=== PATIENT | female | born 1955 | race Caucasian/White ===

== ENCOUNTER 2023-04-28 21:23 | Inpatient (IN) | payer MEDICARE ==
[~2023-04-28] VITALS: Ht 154.9 cm; Wt 55.2 kg
[2023-04-28 21:49] LABS: BASOPHILS ABSOLUTE AUTO 0.07 K/mm3 (0.00-0.23); BASOPHILS PERCENT AUTO 1 % (0-2); EOSINOPHILS ABSOLUTE AUTO 0.09 K/mm3 (0.00-0.68); EOSINOPHILS PERCENT AUTO 1 % (0-6); Hematocrit 37.5 % (33.0-51.0); Hemoglobin 12.2 g/dL (11.5-16.0); IMMATURE GRAN ABSOLUTE AUTO 0.05 K/mm3 (0.00-0.10); IMMATURE GRAN PERCENT AUTO 0 % (0-1); LYMPHOCYTES ABSOLUTE AUTO 1.94 K/mm3 (0.84-5.20); LYMPHOCYTES PERCENT AUTO 16 % (21-46); MONOCYTES ABSOLUTE AUTO 0.99 K/mm3 (0.16-1.47); MONOCYTES PERCENT AUTO 8 % (4-13); Mean Corpuscular HGB 29.2 pg (26.0-34.0); Mean Corpuscular HGB Conc 32.5 g/dL (31.5-36.5); Mean Corpuscular Volume 90 fL (80-100); Mean Platelet Volume 10.5 fL (9.1-12.4); NEUTROPHILS ABSOLUTE AUTO 9.11 K/mm3 (1.96-9.15); NEUTROPHILS PERCENT AUTO 74 % (41-73); Platelet Count 281 K/mm3 (150-400); RDW Coefficient Variation 13.4 % (11.7-14.2); RDW Standard Deviation 44.2 fL (35.1-46.3); Red Blood Cell Count 4.18 M/mm3 (3.80-5.20); White Blood Cell Count 12.25 K/mm3 (4.00-11.30)
[2023-04-28 22:05] LABS: Calcium, Ionized (POC) 1.01 mmol/L (1.10-1.46); Chloride (POC) 105 mmol/L (98-108); Creatinine (POC) 0.6 mg/dL (0.6-1.0); Glucose (ISTAT POC) 155 mg/dL (70-99); Hemoglobin (POC) 12.9 g/dL (12.0-16.0); Potassium (POC) 3.6 mmol/L (3.5-5.5); Sodium (POC) 140 mmol/L (135-148); Total CO2 (POC) 24 mmol/L (21-32)
[2023-04-28 22:27] LABS: Alanine Aminotransfer (ALT/SGP 25 U/L (12-78); Albumin, Blood 3.4 g/dL (3.4-5.0); Alk Phos 87 U/L (50-136); Anion Gap 6 mmol/L (6-16); Aspartate Aminotrans (AST/SGOT 21 U/L (12-37); Bilirubin, Total 0.2 mg/dL (0.1-1.0); Blood Urea Nitrogen 14 mg/dL (8-24); Bun/Creatinine Ratio 20.1 (12.0-20.0); CHOL/HDL RATIO 3.1; CO2, Blood 27 mmol/L (21-32); Calcium, Blood 8.4 mg/dL (8.5-10.1); Chloride, Blood 109 mmol/L (98-108); Cholesterol 165 mg/dL (50-200); Globulin, Blood 3.3 g/dL (2.2-4.0); Glomerular Filtration Rate 94 (60-); Glucose, Blood 162 mg/dL (70-99); HDL Cholesterol 53 mg/dL (>39); LDL/HDL RATIO 1.6; Low Density Lipoprotein Chol 86 mg/dL (0-110); Magnesium, Blood 2.1 mg/dL (1.6-2.4); Potassium, Blood 3.5 mmol/L (3.5-5.5); Sodium, Blood 142 mmol/L (136-145); Total Protein, Blood 6.7 g/dL (6.4-8.2); Triglycerides 128 mg/dL (30-160); Very Low Density Lipoprot Chol 25 mg/dL (6-32)
[2023-04-28 23:00] VITALS: BP 75/49
[2023-04-28 23:15] VITALS: BP 80/58
[2023-04-28 23:30] VITALS: BP 63/46
[2023-04-28 23:44] LABS: International Normalized Ratio 1.01; Prothrombin Time Results 10.6 Sec (9.7-11.5)
[2023-04-28 23:45] VITALS: BP 85/52
[2023-04-29] VITALS (37 sets, daily range): BP systolic 70–106; BP diastolic 46–81
--- NOTE | 2023-04-29 00:56 | NUR ---
ADMIT TO ICU 12: PT ARRIVED TO THE UNIT FROM FILM TESTS CHECKER AT 2255; PT ADMITED DUE TO STEMI, STATUS POST STENT PLACEMENT. PT HAD ONE STENT PLACED TO RCA WITH A RIGHT RADIAL ACCESS POINT AND A TR-BAND ON PLACE. ACCESS SITE IS WITHOUT HEMATOMA OR SIGNS OF BLEEDING, CIRCULATION AND SENSATION INTACT IN EXTREMITIY. PT IS PLEASANT, A&O X 4 AND COOPERATIVE WITH CARE. PT SR ON MONITOR WITH HR 80'S AND SBP 90'S; PT DENIES CHEST PAIN AT THIS TIME. PT ON NC @ 2LPM WITH SPO2 96<; PT HAS CLEAR LUNG SOUNDS WITH EXPIRATORY WHEEZE NOTED, DIM MID-LOWER BASES AND A HX OF COPD WHERE SHE STATES THAT SHE IS SOB ALL THE TIME AT BASELINE. 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 PT EDUCATED REGARDINH IGNITION SOURCES AND FIRE RISK WHILE OXYGEN IS IN USE. PT VERBALIZES UNDERSTANDING AND ALL PERSONAL BELONGINGS LOCKED AWAY IN ROOM. PT HAS HYPOACTIVE BS IN ALL QUADRANTS; ABD SOFT AND NON-TENDER. PT STATES INCONTINENCE AT BASELINE; DEPENDS AND PUREWICK PLACED. PT SKIN INTACT, PPP X 4 AND COOL HANDS/FINGERS. PT HAS NO PAIN COMPLAINTS AT THIS TIME. NS INFUSING @ 75 MLS/HR. BED LOWERED, CALL LIGHT IN REACH, WILL CONTINUE TO MONITOR.
[2023-04-29 02:46] LABS: BASOPHILS ABSOLUTE AUTO 0.03 K/mm3 (0.00-0.23); BASOPHILS PERCENT AUTO 0 % (0-2); EOSINOPHILS ABSOLUTE AUTO 0.01 K/mm3 (0.00-0.68); EOSINOPHILS PERCENT AUTO 0 % (0-6); Hematocrit 34.5 % (33.0-51.0); Hemoglobin 11.3 g/dL (11.5-16.0); IMMATURE GRAN ABSOLUTE AUTO 0.04 K/mm3 (0.00-0.10); IMMATURE GRAN PERCENT AUTO 0 % (0-1); LYMPHOCYTES ABSOLUTE AUTO 1.13 K/mm3 (0.84-5.20); LYMPHOCYTES PERCENT AUTO 9 % (21-46); MONOCYTES ABSOLUTE AUTO 0.68 K/mm3 (0.16-1.47); MONOCYTES PERCENT AUTO 5 % (4-13); Mean Corpuscular HGB 28.8 pg (26.0-34.0); Mean Corpuscular HGB Conc 32.8 g/dL (31.5-36.5); Mean Corpuscular Volume 88 fL (80-100); Mean Platelet Volume 10.7 fL (9.1-12.4); NEUTROPHILS ABSOLUTE AUTO 10.62 K/mm3 (1.96-9.15); NEUTROPHILS PERCENT AUTO 85 % (41-73); Platelet Count 292 K/mm3 (150-400); RDW Coefficient Variation 13.4 % (11.7-14.2); RDW Standard Deviation 42.8 fL (35.1-46.3); Red Blood Cell Count 3.92 M/mm3 (3.80-5.20); White Blood Cell Count 12.51 K/mm3 (4.00-11.30)
[2023-04-29 03:00] LABS: Bilirubin, Total 0.2 mg/dL (0.1-1.0); Bun/Creatinine Ratio 22.9 (12.0-20.0); Calcium, Blood 7.8 mg/dL (8.5-10.1); Creatinine, Blood 0.52 mg/dL (0.40-1.00); Potassium, Blood 3.6 mmol/L (3.5-5.5)
--- NOTE | 2023-04-29 06:21 | NUR ---
SHIFT SUMMARY: PT ABLE TO GET SOME SLEEP TONIGHT AFTER ADMISSION. PT HAS BEEN IN SR FOR MAJORITY OF THE NIGHT WITH SOME PVC'S AND SMALL RUNS OF V-TACH; THIS MORNING AROUND 0600 PT HAD 38 BEAT RUN OF V-TACH WITH SOME REPORTED CHEST PRESSURE AND A HEADACHE. DR CALI CALLED AND NOTIFED, NO NEW ORDER RECIEVED. PT HAS BEEN TOLERATING PO FLUID INTAKE THIS MORNING BUT DOES NOT HAVE AN APPETITE. PUREWICK/DEPENDS IN PLACE. BED LOWERED, CALL LIGHT IN REACH, WILL CONTINUE TO MONITOR UNTIL ONCOMING RN ARRIVES.
[2023-04-29 08:41] LABS: Anion Gap 5 mmol/L (6-16); Blood Urea Nitrogen 12 mg/dL (8-24); Bun/Creatinine Ratio 22.6 (12.0-20.0); CO2, Blood 26 mmol/L (21-32); Calcium, Blood 7.7 mg/dL (8.5-10.1); Chloride, Blood 113 mmol/L (98-108); Cholesterol 139 mg/dL (50-200); Creatinine, Blood 0.53 mg/dL (0.40-1.00); Glomerular Filtration Rate 100 (60-); Glucose, Blood 111 mg/dL (70-99); Sodium, Blood 144 mmol/L (136-145)
[2023-04-29 08:55] LABS: BASOPHILS ABSOLUTE AUTO 0.04 K/mm3 (0.00-0.23); BASOPHILS PERCENT AUTO 0 % (0-2); EOSINOPHILS ABSOLUTE AUTO 0.03 K/mm3 (0.00-0.68); EOSINOPHILS PERCENT AUTO 0 % (0-6); Hematocrit 35.9 % (33.0-51.0); Hemoglobin 11.4 g/dL (11.5-16.0); IMMATURE GRAN ABSOLUTE AUTO 0.03 K/mm3 (0.00-0.10); IMMATURE GRAN PERCENT AUTO 0 % (0-1); LYMPHOCYTES PERCENT AUTO 12 % (21-46); MONOCYTES ABSOLUTE AUTO 0.87 K/mm3 (0.16-1.47); MONOCYTES PERCENT AUTO 8 % (4-13); Mean Corpuscular HGB 29.4 pg (26.0-34.0); Mean Corpuscular HGB Conc 31.8 g/dL (31.5-36.5); Mean Platelet Volume 10.7 fL (9.1-12.4); NEUTROPHILS ABSOLUTE AUTO 8.64 K/mm3 (1.96-9.15); NEUTROPHILS PERCENT AUTO 79 % (41-73); Platelet Count 251 K/mm3 (150-400); RDW Coefficient Variation 13.8 % (11.7-14.2); Red Blood Cell Count 3.88 M/mm3 (3.80-5.20); White Blood Cell Count 10.91 K/mm3 (4.00-11.30)
[2023-04-29 08:56] LABS: Mean Corpuscular Volume 93 fL (80-100)
--- NOTE | 2023-04-29 12:39 | NUR ---
PT HAD A 30 BEAT RUN OF VTACH. PT STATES SHE DOES NOT FEEL WELL. DIAPHORETIC, HOT FLASH, AND JUST GENERALLY DOESN'T FEEL WELL. SPOKE WITH DR. CALI ABOUT VTACH AND SYMPTOMS. NEW ORDERS FOR METOPROLOL.
--- NOTE | 2023-04-29 17:35 | NUR ---
SUMMARY PT A/O X4. DENIES CP OR PRESSURE THIS EVENING. HAS FELT BETTER AFTER GETTING METOPROLOL THIS AFTERNOON AND HAS ONLY HAD A COUPLE 4-5 BEAT RUNS OF VTACH THAT SHE WAS ASYMPTOMATIC WITH. DR. CALI IN THIS EVENING AND UPDATED. PT GOT UP WITH PHYSICAL THERAPY WITHOUT ISSUE. R RADIAL ACCESS SITE STABLE AND PT COMPLIANT WITH CARE. SITTING AT EDGE OF BED FOR DINNER AND NO SIGN OF DISTRESS.
--- NOTE | 2023-04-29 17:40 | NUR ---
PT'S BELONGINGS WITH CIGARETTES AND MIXING MACHINE TENDER CORK GASKET ARE LOCKED IN LOCKING CABINET. HOURLY ROUNDING T/O THE DAY ASSESSING IGNITION RISK. PT HAS NICOTINE PATCH ON. EDUCATED ABOUT SMOKING CESSATION. EDUCATED ABOUT NO SMOKING, VAPING OR OPEN FLAME IN HOSPITAL. PT VERBALIZES UNDERSTANDING.
--- NOTE | 2023-04-29 18:12 | NUR ---
REPORT RECIEVED FROM MANAGER STRATEGIC SOURCING AT 0532.
--- NOTE | 2023-04-29 18:18 | NUR ---
PT TRANSFERED TO [facility] 4 VIA W/C. REPORT GIVEN TO PRISCILLA SANTILLAN.
--- NOTE | 2023-04-29 18:36 | NUR ---
TRANSFER UPDATE/ IGNITION RISK ASSESSMENT PT ARRIVED TO PCU AT 1825 VIA WHEELCHAIR. PT BELONGINGS TRANSFERED WITH PT. PT ON 1L NC AT TIME OF ARRIVAL. NO REPORT OF CHEST PAIN/PRESSURE AT TIME OF ARRIVAL. NO REPORT OF SOB AT TIME OF ARRIVAL. PT ABLE TO TRANSFER SLEF TO AND FROM WHEELCHAIR, TOLERATED WELL. PT HAD ARM BOARD ON RIGHT ARM. TR BAND SITE C/D/I. PT ORIENTED TO PCU ROOM AND CALL LIGHT. PT ASSESSED FOR SMOKING AND IGNITION RISK. PT REPORTS THAT SHE HAS NOT BEEN SMOKING LATELY BUT REPORTED A METALLURGICAL TECHNICIAN IN HER PURSE. PT AGREED TO ALLOW STAFF TO REMOVE METALLURGICAL TECHNICIAN AND PUT IT IN THE LOCKED DRAWER OUTSIDE OF PT ROOM. PT REMINDED THAT [facility] IS A SMOKE FREE FACILITY AND THAT VISTORS NEED TO LEAVE IGNITION RISK DEVICES IN THEIR CAR. PT AGREED.
[2023-04-29] MEDS ORDERED: QUET25 PO (22:31)
[2023-04-30] VITALS: BP 105/72
[2023-04-30 02:00] VITALS: BP 95/72
[2023-04-30 03:43] VITALS: BP 101/70
[2023-04-30 03:59] LABS: BASOPHILS ABSOLUTE AUTO 0.04 K/mm3 (0.00-0.23); BASOPHILS PERCENT AUTO 0 % (0-2); EOSINOPHILS ABSOLUTE AUTO 0.04 K/mm3 (0.00-0.68); EOSINOPHILS PERCENT AUTO 0 % (0-6); Hemoglobin 10.9 g/dL (11.5-16.0); IMMATURE GRAN ABSOLUTE AUTO 0.03 K/mm3 (0.00-0.10); IMMATURE GRAN PERCENT AUTO 0 % (0-1); LYMPHOCYTES ABSOLUTE AUTO 1.71 K/mm3 (0.84-5.20); LYMPHOCYTES PERCENT AUTO 18 % (21-46); MONOCYTES PERCENT AUTO 9 % (4-13); Mean Corpuscular HGB 29.5 pg (26.0-34.0); Mean Corpuscular Volume 89 fL (80-100); Mean Platelet Volume 10.9 fL (9.1-12.4); NEUTROPHILS ABSOLUTE AUTO 6.75 K/mm3 (1.96-9.15); NEUTROPHILS PERCENT AUTO 72 % (41-73); Platelet Count 260 K/mm3 (150-400); RDW Coefficient Variation 13.7 % (11.7-14.2); RDW Standard Deviation 44.7 fL (35.1-46.3); Red Blood Cell Count 3.69 M/mm3 (3.80-5.20); White Blood Cell Count 9.37 K/mm3 (4.00-11.30)
[2023-04-30 04:16] LABS: Albumin, Blood 2.8 g/dL (3.4-5.0); Albumin/Globulin Ratio 0.9 (0.8-1.8); Bilirubin, Total 0.3 mg/dL (0.1-1.0); Calcium, Blood 8.1 mg/dL (8.5-10.1); Creatinine, Blood 0.53 mg/dL (0.40-1.00); Potassium, Blood 3.8 mmol/L (3.5-5.5); Total Protein, Blood 5.8 g/dL (6.4-8.2)
--- NOTE | 2023-04-30 04:33 | NUR ---
SHIFT SUMMARY THIS RN ASSUMED CARE OF PATIENT AT 1900. PATIENT ALERT AND ORIENTED FULLY. ABLE TO MAKE NEEDS KNOWN. SR ON MONITOR WITH HR 70'S, OCCASIONAL PVC'S. ON RA-2L VIA NC TO MAINTAIN SPO2 >92%. PT NOTED TO HAVE DYSPNEA WITH EXERTION. BP STABLE WITH SBP 100'S AT THIS TIME. AFEBRILE. PT DENIES CHEST PAIN/PRESSURE. PPP. RIGHT RADIAL SITE FULLY RECOVERED. DRESSING C/D/I. ARMBOARD IN PLACE. BED IN LOWEST POSITION AND CALL LIGHT WITHIN REACH. IGNITION RISK/SAFETY ASSESSMENT AND EDUCATION COMPLETE. PT VERBALIZED UNDERSTANDING; CONCESSIONIST LOCKED IN LOCKBOX. THIS RN WILL CONTINUE TO MONITOR UNTIL SHIFT CHANGE AT 0700.
[2023-04-30 07:50] VITALS: BP 97/74
--- NOTE | 2023-04-30 09:11 | NUR ---
UPDATE: ON AM ASSESSMENT PT NOTED TO HAVE INCREASE WORK OF BREATHING, RESP 22-24. PT STATES "SHE CAN NOT CATCH HER BREATH." MED LIST REVIEWED, PT NOTED TO HAVE BEEN STARTED ON MEDICATION [place] 04/29/23. CALL PLACED TO CARIDOLOGIST, SHAYAN D/C SWITCHED TO [place]. PLAN FOR PT TO STAY ONE MORE DAY, POSSIBLE D/C TOMORROW.
[2023-04-30 15:23] VITALS: BP 111/86
--- NOTE | 2023-04-30 16:46 | NUR ---
SHIFT SUMMARY: PT ALERT AND ORIENTED X4, ABLE TO FOLLOW COMMANDS AND MAKE NEEDS KNOWN. BP STABLE, HR SR-ST, AFEBRILE, SATS >98% ON ROOM AIR. PT WITH INCREASED WORK OF BREATHING THIS AM, SEE PREVIOUS NOTE. BREATHING IMPROVED, DENIES SOB. PT WITH ANXIETY THIS AFTERNOON, CALL PLACED TO MD, NEW ORDERS RECEIVED, SEE EMAR. ABLE TO AMBULATE TO AND FROM BATHROOM IND. NS GTT AT 50ML/HR. BED IN LOW, CALL LIGHT IN REACH, WILL REPORT TO ONCOMING RN.,
[2023-04-30 19:28] VITALS: BP 109/73
[2023-04-30] MEDS ORDERED: SYNTHROID88 MCG PO (20:32)
[2023-04-30] MEDS ORDERED: VENLAFAXINE HC225 MG PO (20:33)
[2023-05-01] VITALS (16 sets, daily range): BP systolic 73–121; BP diastolic 47–86
[2023-05-01 04:40] LABS: Bun/Creatinine Ratio 11.9 (12.0-20.0); Calcium, Blood 8.5 mg/dL (8.5-10.1); Creatinine, Blood 0.5 mg/dL (0.40-1.00); Magnesium, Blood 1.7 mg/dL (1.6-2.4); Potassium, Blood 3.3 mmol/L (3.5-5.5)
--- NOTE | 2023-05-01 05:00 | NUR ---
PATIENT UPDATE AT APPROX 0400, THE PATIENT'S TELE ALARM WAS REPORTING A HR SUSTAINING IN THE 160'S. PATIENT DENIED CHEST PAIN/PRESSURE OR ANY OTHER SYMPTOMS. EKG DONE TO VERIFY RHYTHM. EKG SHOWING AFIB/AFLUTTER. HR 160-180'S AT THIS TIME. SBP 80'S. PT CONTINUED TO DENY SYMPTOMS. THIS RN CALLED MD MEYER REGARDING STATUS. ORDER FOR 5MG LOPRESSOR PUSH NOW. ORDER PLACED. MED PULLED VIA OVERRIDE D/T SBP 70'S. 5-10 MINUTES AFTER PUSH HR DECREASED TO 100-120'S. SBP 90'S. PT CONTINUES TO BE IN IRREGULAR RHYTHM WITH HR 80-150'S, FLUCTUATING CONSISTENTLY. THIS RN IS MONITORING FOR SUSTAINED INCREASED HR AT THIS TIME AND WILL PROVIDE INTERVENTIONS APPROPRIATE.
--- NOTE | 2023-05-01 05:55 | NUR ---
PATIENT UPDATE/SHIFT SUMMARY SEE PREVIOUS NOTE REGARDING RHYTHM CHANGE. PATIENT GIVEN SECOND LOPRESSOR PUSH AT 0545. SBP 80-90'S AT THIS TIME. MAP >65. PATIENT CONTINUES TO DENY ALL SYMPTOMS. SPO2 >90% ON RA. DENIES CHEST PAIN/PRESSURE AND SOB. PATIENT CALLING APPROPRIATELY. A&O X4. FIRE/IGNITION SAFETY ASSESSMENT AND EDUCATION COMPLETED. DENIES IGNITION SOURCE; NICOTINE PATCH IN PLACE. BED IN LOWEST POSITION AND CALL LIGHT WITHIN REACH. THIS RN WILL CONTINUE TO MONITOR AND PROVIDE INTERVENTIONS APPROPRIATE UNTIL REPORT GIVEN TO ONCOMING RN.
--- NOTE | 2023-05-01 13:54 | NUR ---
SHIFT SUMMARY/TRANSFER OF CARE: PT ALERT AND ORIENTED X4, ABLE TO FOLLOW COMMANDS AND MAKE NEEDS KNOWN. BP SOFT THIS AM, MAP >65, MD NOTIFIED, ORDERS FOR PT TO RECEIVE ONE ADDITIONAL BAG OF NS @50ML/HR. HR SR 70'S, AFEBRILE, SATS >96% ON ROOM AIR. PT DENIES CP/PRESSURE/SOB. ARMBOARD IN PLACE FOR R.RADIAL SITE, DRESSING C/D/I. PT IND TO AND FROM BATHROOM, GOOD URINIARY OUT, NO BM. PT MED W/TELE STATUS. POSSIBLE D/C IN AM. REPORT GIVEN TO Kirby BROWN RN. BED IN LOW, CALL LIGHT IN REACH.
[2023-05-02 04:21] VITALS: BP 96/59
--- NOTE | 2023-05-02 04:48 | NUR ---
SHIFT SUMMARY PATIENT ALERT AND ORIENTED x4, ABLE TO MAKE NEEDS KNOWN TO STAFF. VITALS STABLE, REMAINS ON RA WITH O2 SAT >90%. NO CARDIAC EVENTS OVERNIGHT. ANGIO SITE TO RIGHT RADIAL HAS NO HEMATOMA, MINIMAL SWELLING, NO DRAINAGE NOTED. ARMBOARD IN PLACE. PATIENT INDEPDENDENT TO THE BATHROOM WITH ADEQUATE OUTPUT DURING THE SHIFT. TOLERATING PO. NO OTHER SIGNIFICANT CHANGES THIS SHIFT, WILL REPORT TO DAY SHIFT RN. PATIENT EDUCATED ON IGNITION RISK. NO SOURCE OF IGNITION NOTED. PATIENT VERBALIZED UNDERSTANDING. WILL CONTINUE TO MONITOR FOR INCREASED RISK.
[2023-05-02 05:05] LABS: BASOPHILS ABSOLUTE AUTO 0.05 K/mm3 (0.00-0.23); BASOPHILS PERCENT AUTO 0 % (0-2); EOSINOPHILS ABSOLUTE AUTO 0.05 K/mm3 (0.00-0.68); EOSINOPHILS PERCENT AUTO 0 % (0-6); Hematocrit 37.4 % (33.0-51.0); Hemoglobin 12.5 g/dL (11.5-16.0); IMMATURE GRAN ABSOLUTE AUTO 0.06 K/mm3 (0.00-0.10); IMMATURE GRAN PERCENT AUTO 1 % (0-1); LYMPHOCYTES ABSOLUTE AUTO 1.43 K/mm3 (0.84-5.20); LYMPHOCYTES PERCENT AUTO 12 % (21-46); MONOCYTES ABSOLUTE AUTO 1.07 K/mm3 (0.16-1.47); MONOCYTES PERCENT AUTO 9 % (4-13); Mean Corpuscular HGB 29.1 pg (26.0-34.0); Mean Corpuscular HGB Conc 33.4 g/dL (31.5-36.5); Mean Corpuscular Volume 87 fL (80-100); NEUTROPHILS ABSOLUTE AUTO 9.05 K/mm3 (1.96-9.15); NEUTROPHILS PERCENT AUTO 77 % (41-73); Platelet Count 254 K/mm3 (150-400); RDW Coefficient Variation 13.3 % (11.7-14.2); RDW Standard Deviation 42.3 fL (35.1-46.3); White Blood Cell Count 11.71 K/mm3 (4.00-11.30)
[2023-05-02 05:26] LABS: Bun/Creatinine Ratio 13.4 (12.0-20.0); Calcium, Blood 8.3 mg/dL (8.5-10.1); Creatinine, Blood 0.6 mg/dL (0.40-1.00); Potassium, Blood 3.6 mmol/L (3.5-5.5)
[2023-05-02 07:52] VITALS: BP 101/76
[2023-05-02] MEDS ORDERED: ASPIR 8181 M1 PO (12:27)
[2023-05-02] MEDS ORDERED: ATOR80 PO (12:28)
[2023-05-02] MEDS ORDERED: CLOP75 PO (12:29)
[2023-05-02] MEDS ORDERED: NICO21TP TOP (12:29)
[2023-05-02] MEDS ORDERED: POTCHL20ER PO (12:33)
[2023-05-02] MEDS ORDERED: ELIQUIS5 M2 PO (12:34)
--- NOTE | 2023-05-02 13:26 | NUR ---
DISCHARGE: PT HAS BEEN CLEARED FOR DISCHARGE HOME. IV ACCESS DC'd WNL. PT DRESSES SELF. DISCHARGE PAPERWORK AND INSTRUCTIONS PROVIDED, ALL QUESTIONS HAVE BEEN ANSWERED. PT HAS BEEN ESCORTED FROM UNIT W/OUT INCIDENT.
== END 2023-05-02 13:26 | disposition home or self-care (01) | DRG 247 ==
LOC: ER 21:23 → ICUE 21:40 → PCU 22:00 → ICUE 22:55 → PCU 04-29 18:51
PROVIDERS: Family Medicine; Hospitalist; Internal Medicine Cardiovascular Disease; Student in an Organized Health Care Education/Training Program; ADMIT Internal Medicine
PROC: 027034Z Dilation of Coronary Artery, One Artery with Drug-eluting Intraluminal Device, Percutaneous Approach (ICD-10-PCS; principal; 2023-04-28)
PROC: 4A023N7 Measurement of Cardiac Sampling and Pressure, Left Heart, Percutaneous Approach (ICD-10-PCS; 2023-04-28)
PROC: B2111ZZ Fluoroscopy of Multiple Coronary Arteries using Low Osmolar Contrast (ICD-10-PCS; 2023-04-28)
PROC: B241ZZ3 Ultrasonography of Multiple Coronary Arteries, Intravascular (ICD-10-PCS; 2023-04-28)
DX: I21.19 ST elevation (STEMI) myocardial infarction involving other coronary artery of inferior wall (principal); I47.1 Supraventricular tachycardia; I25.10 Atherosclerotic heart disease of native coronary artery without angina pectoris; I24.9 Acute ischemic heart disease, unspecified; I48.0 Paroxysmal atrial fibrillation; I73.9 Peripheral vascular disease, unspecified; J44.9 Chronic obstructive pulmonary disease, unspecified; F10.90 Alcohol use, unspecified, uncomplicated; E78.5 Hyperlipidemia, unspecified; R68.84 Jaw pain; I95.9 Hypotension, unspecified; F17.219 Nicotine dependence, cigarettes, with unspecified nicotine-induced disorders; Z79.899 Other long term (current) drug therapy; Z90.89 Acquired absence of other organs; Z90.710 Acquired absence of both cervix and uterus; Z79.02 Long term (current) use of antithrombotics/antiplatelets; Z79.01 Long term (current) use of anticoagulants; Z71.6 Tobacco abuse counseling
CPT/HCPCS: 36415; 76937; 80047; 80048; 80053; 80061; 82465; 83735; 83880; 84484; 85014; 85025; 85347; 85610; 85730; 86850; 86900; 86901; 93005; 93010; 93306; 93454; 94760; 94761; 94762; 96374; 97110-CQ; 97161; 97530; 99152; 99153; 99285-25; A9270; C1725; C1769; C1874; C1887; C1894; C9606; J0461; J1265; J1644; J1650; J2250; J2371; J2405; J3010; J7030; J7050; Q9967

== ENCOUNTER 2023-05-05 13:23 | Emergency (ER) | payer MEDICARE ==
[~2023-05-05] VITALS: Ht 154.9 cm; Wt 54.4 kg
[~2023-05-05 13:23] MED LIST: ASPIR 8181 M1 PO; ATOR80 PO; CLOP75 PO; ELIQUIS5 M2 PO; NICO21TP TOP; POTCHL20ER PO; QUET25 PO; SYNTHROID88 MCG PO; VENLAFAXINE HC225 MG PO
[2023-05-05 14:25] LABS: BASOPHILS ABSOLUTE AUTO 0.04 K/mm3 (0.00-0.23); BASOPHILS PERCENT AUTO 1 % (0-2); EOSINOPHILS ABSOLUTE AUTO 0.09 K/mm3 (0.00-0.68); EOSINOPHILS PERCENT AUTO 1 % (0-6); Hematocrit 33.8 % (33.0-51.0); Hemoglobin 11.3 g/dL (11.5-16.0); IMMATURE GRAN ABSOLUTE AUTO 0.03 K/mm3 (0.00-0.10); IMMATURE GRAN PERCENT AUTO 0 % (0-1); LYMPHOCYTES ABSOLUTE AUTO 1.27 K/mm3 (0.84-5.20); LYMPHOCYTES PERCENT AUTO 15 % (21-46); MONOCYTES ABSOLUTE AUTO 0.88 K/mm3 (0.16-1.47); MONOCYTES PERCENT AUTO 10 % (4-13); Mean Corpuscular HGB 29.2 pg (26.0-34.0); Mean Corpuscular HGB Conc 33.4 g/dL (31.5-36.5); Mean Corpuscular Volume 87 fL (80-100); NEUTROPHILS ABSOLUTE AUTO 6.32 K/mm3 (1.96-9.15); NEUTROPHILS PERCENT AUTO 73 % (41-73); Platelet Count 349 K/mm3 (150-400); RDW Coefficient Variation 13.2 % (11.7-14.2); RDW Standard Deviation 41.9 fL (35.1-46.3); Red Blood Cell Count 3.87 M/mm3 (3.80-5.20); White Blood Cell Count 8.63 K/mm3 (4.00-11.30)
[2023-05-05 15:01] LABS: Albumin/Globulin Ratio 0.8 (0.8-1.8); Bilirubin, Total 0.3 mg/dL (0.1-1.0); Bun/Creatinine Ratio 23.1 (12.0-20.0); Calcium, Blood 8.9 mg/dL (8.5-10.1); Creatinine, Blood 0.56 mg/dL (0.40-1.00); Globulin, Blood 3.9 g/dL (2.2-4.0); Potassium, Blood 4.9 mmol/L (3.5-5.5); Total Protein, Blood 6.9 g/dL (6.4-8.2)
[2023-05-05 16:30] VITALS: BP 95/62
== END 2023-05-05 17:15 | disposition home or self-care (01) ==
LOC: ER 13:23
PROVIDERS: Emergency Medicine
DX: I95.9 Hypotension, unspecified (principal); J44.9 Chronic obstructive pulmonary disease, unspecified; F17.200 Nicotine dependence, unspecified, uncomplicated
CPT/HCPCS: 71046; 80053; 83880; 84443; 85025; 85379; 93005; 93010; 96360; 99285-25; J7030

== ENCOUNTER 2023-06-20 12:59 | Observation (INO) | payer MEDICARE ==
[~2023-06-20] VITALS: Ht 154.9 cm; Wt 53.8 kg
[2023-06-20] VITALS (7 sets, daily range): BP systolic 90–143; BP diastolic 72–85
[2023-06-20] MEDS ORDERED: LORAZEPAM0.5 MG PO (13:27)
[2023-06-20 13:51] LABS: BASOPHILS ABSOLUTE AUTO 0.03 K/mm3 (0.00-0.23); BASOPHILS PERCENT AUTO 1 % (0-2); EOSINOPHILS ABSOLUTE AUTO 0.08 K/mm3 (0.00-0.68); EOSINOPHILS PERCENT AUTO 2 % (0-6); IMMATURE GRAN ABSOLUTE AUTO 0.01 K/mm3 (0.00-0.10); IMMATURE GRAN PERCENT AUTO 0 % (0-1); LYMPHOCYTES ABSOLUTE AUTO 0.91 K/mm3 (0.84-5.20); LYMPHOCYTES PERCENT AUTO 18 % (21-46); MONOCYTES ABSOLUTE AUTO 0.51 K/mm3 (0.16-1.47); MONOCYTES PERCENT AUTO 10 % (4-13); Mean Corpuscular HGB 21.9 pg (26.0-34.0); Mean Corpuscular Volume 76 fL (80-100); Mean Platelet Volume 11.6 fL (9.1-12.4); NEUTROPHILS ABSOLUTE AUTO 3.67 K/mm3 (1.96-9.15); NEUTROPHILS PERCENT AUTO 70 % (41-73); Platelet Count 448 K/mm3 (150-400); RDW Coefficient Variation 18.8 % (11.7-14.2); RDW Standard Deviation 51.2 fL (35.1-46.3); Red Blood Cell Count 2.33 M/mm3 (3.80-5.20); White Blood Cell Count 5.21 K/mm3 (4.00-11.30)
[2023-06-20 14:05] LABS: Hematocrit 17.6 % (33.0-51.0); Hemoglobin 5.1 g/dL (11.5-16.0)
[2023-06-20 14:09] LABS: Albumin, Blood 3.5 g/dL (3.4-5.0); Bilirubin, Total 0.2 mg/dL (0.1-1.0); Bun/Creatinine Ratio 17.9 (12.0-20.0); Calcium, Blood 8.9 mg/dL (8.5-10.1); Creatinine, Blood 0.84 mg/dL (0.40-1.00); Globulin, Blood 3.5 g/dL (2.2-4.0); Potassium, Blood 3.7 mmol/L (3.5-5.5)
--- NOTE | 2023-06-20 18:18 | NUR ---
SHIFT SUMMARY NEW ER ADMIT THIS AFTERNOON. AOX4, SBA DUE TO BLOOD ADMINISTRATION AND LINES. NO COMPLAINTS, TOLERATING BLOOD ADMINISTRATION WELL. RA, NO SKIN ISSUES. CALL LIGHT WITHIN REACH, BED IN THE LOWEST POSITION. WILL REPORT TO ONCOMING NURSE.
[2023-06-21 04:11] VITALS: BP 122/74
[2023-06-21 06:06] LABS: International Normalized Ratio 1.02; Prothrombin Time Results 10.7 Sec (9.7-11.5)
[2023-06-21 06:08] LABS: BASOPHILS ABSOLUTE AUTO 0.07 K/mm3 (0.00-0.23); BASOPHILS PERCENT AUTO 1 % (0-2); EOSINOPHILS ABSOLUTE AUTO 0.18 K/mm3 (0.00-0.68); EOSINOPHILS PERCENT AUTO 3 % (0-6); Hematocrit 24.7 % (33.0-51.0); Hemoglobin 7.8 g/dL (11.5-16.0); IMMATURE GRAN ABSOLUTE AUTO 0.02 K/mm3 (0.00-0.10); IMMATURE GRAN PERCENT AUTO 0 % (0-1); LYMPHOCYTES ABSOLUTE AUTO 1.18 K/mm3 (0.84-5.20); LYMPHOCYTES PERCENT AUTO 20 % (21-46); MONOCYTES ABSOLUTE AUTO 0.62 K/mm3 (0.16-1.47); MONOCYTES PERCENT AUTO 11 % (4-13); Mean Corpuscular HGB 24.6 pg (26.0-34.0); Mean Corpuscular HGB Conc 31.6 g/dL (31.5-36.5); Mean Corpuscular Volume 78 fL (80-100); Mean Platelet Volume 11.4 fL (9.1-12.4); NEUTROPHILS ABSOLUTE AUTO 3.78 K/mm3 (1.96-9.15); NEUTROPHILS PERCENT AUTO 65 % (41-73); Platelet Count 393 K/mm3 (150-400); RDW Coefficient Variation 18.5 % (11.7-14.2); Red Blood Cell Count 3.17 M/mm3 (3.80-5.20); White Blood Cell Count 5.85 K/mm3 (4.00-11.30)
[2023-06-21 06:19] LABS: Magnesium, Blood 1.9 mg/dL (1.6-2.4)
[2023-06-21 06:20] LABS: Albumin, Blood 3.3 g/dL (3.4-5.0); Bilirubin, Total 0.6 mg/dL (0.1-1.0); Bun/Creatinine Ratio 12.7 (12.0-20.0); Calcium, Blood 8.5 mg/dL (8.5-10.1); Creatinine, Blood 0.63 mg/dL (0.40-1.00); Globulin, Blood 3.3 g/dL (2.2-4.0); Phosphorus, Blood 2.9 mg/dL (2.5-4.9); Potassium, Blood 3.7 mmol/L (3.5-5.5); Total Protein, Blood 6.6 g/dL (6.4-8.2)
[2023-06-21 07:41] VITALS: BP 111/75
[2023-06-21 13:15] LABS: BASOPHILS ABSOLUTE AUTO 0.04 K/mm3 (0.00-0.23); BASOPHILS PERCENT AUTO 1 % (0-2); EOSINOPHILS ABSOLUTE AUTO 0.13 K/mm3 (0.00-0.68); EOSINOPHILS PERCENT AUTO 2 % (0-6); Hematocrit 26.1 % (33.0-51.0); Hemoglobin 8.2 g/dL (11.5-16.0); IMMATURE GRAN ABSOLUTE AUTO 0.02 K/mm3 (0.00-0.10); IMMATURE GRAN PERCENT AUTO 0 % (0-1); LYMPHOCYTES ABSOLUTE AUTO 1.21 K/mm3 (0.84-5.20); LYMPHOCYTES PERCENT AUTO 22 % (21-46); MONOCYTES ABSOLUTE AUTO 0.46 K/mm3 (0.16-1.47); MONOCYTES PERCENT AUTO 8 % (4-13); Mean Corpuscular HGB 24.6 pg (26.0-34.0); Mean Corpuscular HGB Conc 31.4 g/dL (31.5-36.5); Mean Corpuscular Volume 78 fL (80-100); Mean Platelet Volume 10.6 fL (9.1-12.4); NEUTROPHILS ABSOLUTE AUTO 3.78 K/mm3 (1.96-9.15); NEUTROPHILS PERCENT AUTO 67 % (41-73); Platelet Count 396 K/mm3 (150-400); RDW Coefficient Variation 18.5 % (11.7-14.2); RDW Standard Deviation 52.6 fL (35.1-46.3); Red Blood Cell Count 3.34 M/mm3 (3.80-5.20); White Blood Cell Count 5.64 K/mm3 (4.00-11.30)
[2023-06-21] MEDS ORDERED: PANT40 PO (14:16)
[2023-06-21] MEDS ORDERED: FERSU300 PO (14:18)
--- NOTE | 2023-06-21 14:52 | NUR ---
DISCHARGE: PT D/C @2406 VIA OWN AUTOMOBILE. NEW RX MEDICATIONS FAXED TO [facility]. PT HAS FOLLOW-UP APPT TOMORROW @ [place] W/NEW PRIMARY DR. OLSEN. IV REMOVED BY SUSAN THOMAS. PT STATES SHE FEELS MUCH BETTER. DISCHARGE PACKET GIVEN. ALL BELONGINGS SENT WITH PT.
== END 2023-06-21 14:41 | disposition home or self-care (01) ==
LOC: ER 12:59 → MEDS 13:00 → SURS 13:00 → MEDS 17:07
PROVIDERS: Student in an Organized Health Care Education/Training Program; ADMIT Family Medicine
DX: D64.9 Anemia, unspecified (principal); I25.10 Atherosclerotic heart disease of native coronary artery without angina pectoris; I48.91 Unspecified atrial fibrillation; J44.9 Chronic obstructive pulmonary disease, unspecified
CPT/HCPCS: 36415; 36430; 71046; 74177; 80053; 82272; 83690; 83735; 84100; 84484; 85025; 85610; 86850; 86900; 86901; 86923; 93005; 93010; 96360-59; 99285-25; A9270; G0378; J7030; P9016; Q9967

== ENCOUNTER 2023-08-18 11:54 | Emergency (ER) | payer MEDICARE ==
[~2023-08-18] VITALS: Ht 162.6 cm; Wt 52.2 kg
[~2023-08-18 11:54] MED LIST changes: +FERSU300 PO; +LORAZEPAM0.5 MG PO; +PANT40 PO
[2023-08-18 12:03] VITALS: BP 107/84
[2023-08-18 12:32] LABS: BASOPHILS ABSOLUTE AUTO 0.02 K/mm3 (0.00-0.23); BASOPHILS PERCENT AUTO 0 % (0-2); EOSINOPHILS ABSOLUTE AUTO 0.02 K/mm3 (0.00-0.68); EOSINOPHILS PERCENT AUTO 0 % (0-6); Hematocrit 39.7 % (33.0-51.0); Hemoglobin 12.3 g/dL (11.5-16.0); IMMATURE GRAN ABSOLUTE AUTO 0.02 K/mm3 (0.00-0.10); IMMATURE GRAN PERCENT AUTO 0 % (0-1); LYMPHOCYTES ABSOLUTE AUTO 0.81 K/mm3 (0.84-5.20); LYMPHOCYTES PERCENT AUTO 10 % (21-46); MONOCYTES ABSOLUTE AUTO 0.69 K/mm3 (0.16-1.47); MONOCYTES PERCENT AUTO 9 % (4-13); Mean Corpuscular HGB 25.1 pg (26.0-34.0); Mean Corpuscular Volume 81 fL (80-100); NEUTROPHILS ABSOLUTE AUTO 6.42 K/mm3 (1.96-9.15); NEUTROPHILS PERCENT AUTO 80 % (41-73); Platelet Count 295 K/mm3 (150-400); RDW Coefficient Variation 21.3 % (11.7-14.2); RDW Standard Deviation 61.1 fL (35.1-46.3); Red Blood Cell Count 4.91 M/mm3 (3.80-5.20); White Blood Cell Count 7.98 K/mm3 (4.00-11.30)
[2023-08-18 13:47] LABS: Albumin, Blood 3.6 g/dL (3.4-5.0); Albumin/Globulin Ratio 0.8 (0.8-1.8); Bilirubin, Total 0.3 mg/dL (0.1-1.0); Bun/Creatinine Ratio 16.4 (12.0-20.0); Calcium, Blood 9.1 mg/dL (8.5-10.1); Creatinine, Blood 0.67 mg/dL (0.40-1.00); Globulin, Blood 4.6 g/dL (2.2-4.0); Potassium, Blood 3.9 mmol/L (3.5-5.5); Total Protein, Blood 8.2 g/dL (6.4-8.2)
== END 2023-08-18 15:04 | disposition home or self-care (01) ==
LOC: ER 11:54
PROVIDERS: Student in an Organized Health Care Education/Training Program
DX: K92.2 Gastrointestinal hemorrhage, unspecified (principal); Z72.0 Tobacco use; J44.9 Chronic obstructive pulmonary disease, unspecified; I25.2 Old myocardial infarction; Z79.899 Other long term (current) drug therapy
CPT/HCPCS: 80053; 85025; 86850; 86900; 86901; 99284

== ENCOUNTER 2024-05-28 13:08 | Day surgery (SDC) | payer MEDICARE ==
[~2024-05-28] VITALS: Ht 154.9 cm; Wt 56.6 kg
[~2024-05-28 13:08] MED LIST changes: +Lactated Ringer's 1,000 ML IV ONE; +propofoL 50 ML IV ONE
[2024-05-28] MEDS ORDERED: METO25ER (13:31)
[2024-05-28] MEDS ORDERED: ASPI81CH (13:31)
[2024-05-28] MEDS ORDERED: MULTIPLE VITAM1 EACH (13:32)
[2024-05-28] MEDS ORDERED: MAGNESIUM GLUCO27 MG (13:32)
[2024-05-28] MEDS ORDERED: Seroquel Xr50 MG (13:32)
[2024-05-28] MEDS ORDERED: CHROMIUM PIC1000 MC1 (13:33)
[2024-05-28] MEDS ORDERED: C COMPLEX1000 MG (13:34)
[2024-05-28] MEDS ORDERED: ZINC15 (13:34)
[2024-05-28] MEDS ORDERED: Lactated Ringer's 1,000 ML IV ONE (14:28)
--- NOTE | 2024-05-28 14:32 | NUR ---
05/28/24 1432 Eleanor Robles DURING ADMISSION PT'S BP IN LOW 90S TO 89S SBP. WITH PT'S CARDIAC HISTORY, THIS RN ASKED DR. MEDINA TO ASSESS PT TO ENSURE APPROPRIATE FOR NURSE SEDATION WITH LOW BP. DR. MEDINA ASSESSED PT, ORDERED 250ML BOLUS OF LR AND TO RECHECK BP. DR. MEDINA STATED OKAY FOR NURSE SEDATION, KEEP MAP AT OR ABOVE 65, AND GIVE EPHEDRINE PRN.
[2024-05-28] MEDS ORDERED: ePHEDrine Sulfate 50 MG/ML 1ML Injection ONE (14:38)
[2024-05-28] MEDS ORDERED: Midazolam HCL 1 MG/ML 5MLVIAL ONE (14:41)
[2024-05-28] MEDS ORDERED: Ondansetron HCl 2 MG / ML 2ML Vial ONE (15:10)
[2024-05-28] MEDS ORDERED: Glycopyrrolate 0.2 MG/ML 1MLVIAL ONE (15:13)
[2024-05-28 16:06] VITALS: BP 98/68
== END 2024-05-28 16:12 | disposition home or self-care (01) ==
LOC: ORSCSDS 13:08
PROVIDERS: Internal Medicine Gastroenterology
PROC: 0D5H8ZZ Destruction of Cecum, Via Natural or Artificial Opening Endoscopic (ICD-10-PCS; principal; 2024-05-28 14:15)
PROC: 0DJ08ZZ Inspection of Upper Intestinal Tract, Via Natural or Artificial Opening Endoscopic (ICD-10-PCS; principal; 2024-05-28 14:15)
DX: D50.9 Iron deficiency anemia, unspecified (principal); K29.50 Unspecified chronic gastritis without bleeding; K55.21 Angiodysplasia of colon with hemorrhage; K44.9 Diaphragmatic hernia without obstruction or gangrene; R93.3 Abnormal findings on diagnostic imaging of other parts of digestive tract; Z86.010 Personal history of colon polyps; J44.9 Chronic obstructive pulmonary disease, unspecified; E78.5 Hyperlipidemia, unspecified; I73.9 Peripheral vascular disease, unspecified; I48.0 Paroxysmal atrial fibrillation; Z79.82 Long term (current) use of aspirin; Z79.02 Long term (current) use of antithrombotics/antiplatelets; Z79.899 Other long term (current) drug therapy; F17.200 Nicotine dependence, unspecified, uncomplicated
CPT/HCPCS: J2250; J2405; J2704; J7120

== ENCOUNTER 2025-07-08 08:43 | Day surgery (SDC) | payer MEDICARE ==
[2025-07-08] VITALS (7 sets, daily range): BP systolic 82–134; BP diastolic 67–116
[~2025-07-08] VITALS: Ht 154.9 cm; Wt 56.0 kg
[~2025-07-08 08:43] MED LIST changes: +ASPI81CH; +C COMPLEX1000 MG; +CHROMIUM PIC1000 MC1; -Lactated Ringer's 1,000 ML IV ONE; +MAGNESIUM GLUCO27 MG PO; +METO25ER PO; +MULTIPLE VITAM1 EACH; +RANO500T PO; +Seroquel Xr50 MG PO; +ZINC15; -propofoL 50 ML IV ONE
[2025-07-08] MEDS ORDERED: NS 1,000 ML IV ONE ×2 (09:17→09:20)
[2025-07-08] MEDS ORDERED: Verapamil HCL 2.5 MG/ML 2ML Injection ONE (09:17)
[2025-07-08] MEDS ORDERED: Heparin Sodium 1000 Units/ML 10ML MDV ONE (09:17)
[2025-07-08] MEDS ORDERED: NS 250 ML IV ONE (09:17)
[2025-07-08] MEDS ORDERED: Nitroglycerin 2 MG/20 ML BTL ONE (09:18)
[2025-07-08] MEDS ORDERED: Midazolam HCl 1MG / ML 2ML Vial ONE ×2 (09:20→10:33)
[2025-07-08] MEDS ORDERED: FentaNYL Citrate 50 MCG/ML 2 ML Injection ONE ×2 (09:20→10:33)
[2025-07-08] MEDS ORDERED: PANT40 PO (09:20)
[2025-07-08] MEDS ORDERED: LOSA25 PO (09:20)
[2025-07-08] MEDS ORDERED: VITAMIN D310 MC5 PO (09:22)
[2025-07-08] MEDS ORDERED: C COMPLEX1000 M1 PO (09:22)
[2025-07-08] MEDS ORDERED: ZINC15 PO (09:22)
--- NOTE | 2025-07-08 12:22 | NUR ---
PT AIR FULLY DEFLATED FROM TR BAND. NO BLEEDING OR HEMATOMA NOTED. VSS. NADN. PT RESTING COMFORTABLY, DENIES NEEDS. CALL LIGHT WITHIN REACH.
--- NOTE | 2025-07-08 13:05 | NUR ---
CARE ASSUMED AT 1230. RIGHT TR BAND SITE REVIEWED WITH RN. SITE WNL, SOFT W/O HEMATOMA, BLEEDING, SWELLING, OR TENDERNESS. PATIENT UP TO AMBULATE AT 1255, ANDRÉS WELL, BP WNL. PATIENT DENIES COMPLAINTS. PATIENT ABLE TO DRESS W/O ISSUES. IV DC'D INTACT. VERBAL AND WRITTEN DISCHARGE INSTRUCTIONS GIVEN TO PATIENT WITH CLEAR UNDERSTANDING. PATIENT HAS CALLED AN [facility] TO DRIVE HER HOME. PATIENT ESCORTED TO [facility] VIA WHEELCHAIR AND DISCHARGED HOME IN STABLE CONDITION AT 1325
== END 2025-07-08 23:00 | disposition home or self-care (01) ==
LOC: MHTC 08:43
DX: I25.10 Atherosclerotic heart disease of native coronary artery without angina pectoris (principal); I50.30 Unspecified diastolic (congestive) heart failure; I11.0 Hypertensive heart disease with heart failure; J44.9 Chronic obstructive pulmonary disease, unspecified; I25.5 Ischemic cardiomyopathy; I73.9 Peripheral vascular disease, unspecified; E78.5 Hyperlipidemia, unspecified; F17.210 Nicotine dependence, cigarettes, uncomplicated; Z79.899 Other long term (current) drug therapy
CPT/HCPCS: 76937; 93458; 99152; 99153; A9270; C1769; C1887; C1894; J1644; J2250; J3010; J7030; J7050; Q9967